=== PATIENT | male | born 1985 | race Caucasian/White ===

== ENCOUNTER 2020-06-26 16:07 | Emergency (ER) | payer OTHER, SELFPAY ==
[~2020-06-26] VITALS: Ht 170.2 cm; Wt 70.3 kg
[2020-06-26 16:13] VITALS: Ht 170.2 cm; Wt 70.3 kg
[2020-06-26 16:47] VITALS: BP 133/79
== END 2020-06-26 16:47 | disposition home or self-care (01) ==
LOC: ED 16:07
DX: R50.9 Fever, unspecified (principal); M79.10 Myalgia, unspecified site; R19.7 Diarrhea, unspecified; Z20.828 Contact with and (suspected) exposure to other viral communicable diseases
CPT/HCPCS: U0003